=== PATIENT | male | born 1995 | race Two or more races ===

== ENCOUNTER 2018-06-21 08:08 | Emergency (ER) | payer MEDICAID ==
[~2018-06-21] VITALS: Ht 177.8 cm; Wt 59.0 kg
[2018-06-21 08:13] VITALS: BP 128/79
[2018-06-21] MEDS ORDERED: Tetanus/Diptheria/Pertussis Vaccine 0.5ml Syr IM ONE (08:15)
[2018-06-21] MEDS ORDERED: Neosporin Oint Ud Pkt TOP ONE (08:15)
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
[2018-06-21] MEDS: Acetaminophen 500mg (ES) tab PO ONE ×2 (08:36→08:40)
[2018-06-21 08:40] LABS: HEMATOCRIT 38.8 % (42.0-52.0); HEMOGLOBIN 13.3 G/DL (14.2-18.0); MEAN CORPUSCULAR VOLUME 87 FL (80-99); PLATELET COUNT 213 K/UL (150-450); RED BLOOD COUNT 4.45 M/UL (4.70-6.10); RED CELL DISTRIBUTION WIDTH 12.1 % (11.6-14.8); WHITE BLOOD COUNT 20.2 K/UL (4.8-10.8)
[2018-06-21 08:47] LABS: INR 1.1 (0.9-1.1)
--- NOTE | 2018-06-21 09:19 | Diagnostic Imaging Report ---
Indication: Headache. Head trauma Technique: Contiguous 5 mm thick transaxial imaging of the head obtained in a Siemens Sensation [address] scanner. Soft tissue and bone windows generated. Automatic Exposure Control was utilized. Total Dose length Product (DLP): 1414.[address] Dose Index Volume (CTDIvol): 70.38 mGy Comparison: none Findings: There is a hyperdense ovoid 0.8 x 1.8 cm hematoma in the right frontal lobe with a mild surrounding low attenuation edema consistent with a hemorrhagic contusion. Second hemorrhagic contusion noted within the right middle cranial fossa in the anterior tip of the temporal lobe measuring 1.2 cm. Mild sulcal high density within the right temporal lobe indicative of traumatic subarachnoid hemorrhage. There is no subdural hematoma identified. The calvarium appears intact. There is no midline shift. Ventricles appear normal. Basal cisterns appear normal. IMPRESSION: Right frontal lobe and right temporal lobe acute hemorrhagic contusions and evidence of traumatic subarachnoid hemorrhage within the right temporal lobe. Critical value communication. Findings were discussed via telephone with Dr. Dyer via telephone 9:13 a.m. 06/21/2018. The CT scanner at [facility] is accredited by the [employer] and the scans are performed using dose optimization techniques as appropriate to a performed exam including Automatic Exposure control.
[2018-06-21 09:22] VITALS: BP 122/74
[2018-06-21 09:26] LABS: ANION GAP 9 mmol/L (5-15); BLOOD UREA NITROGEN 21 mg/dL (7-18); CALCIUM 8.7 MG/DL (8.5-10.1); CARBON DIOXIDE 26 MMOL/L (21-32); CHLORIDE 101 MMOL/L (98-107); CREATININE 1.1 MG/DL (0.55-1.30); POTASSIUM 4.1 MMOL/L (3.5-5.1); SODIUM 136 MMOL/L (136-145)
[2018-06-21 09:30] LABS: ALANINE AMINOTRANSFERASE 62 U/L (12-78); ALBUMIN 3.9 G/DL (3.4-5.0); ALKALINE PHOSPHATASE 73 U/L (46-116); ASPARTATE AMINO TRANSFERASE 66 U/L (15-37); BILIRUBIN,TOTAL 0.5 MG/DL (0.2-1.0)
[2018-06-21] MEDS ORDERED: levETIRAcetam 500mg/NS100ml 100 ML IVPB ONE (09:30)
--- NOTE | 2018-06-21 09:30 | Diagnostic Imaging Report ---
Indication: Neck pain. Trauma Technique: Continuous helical imaging of the cervical spine was obtained transaxially from the skull base to the upper thoracic spine. 2-D coronal and sagittal reformatted images were obtained. Automatic Exposure Control was utilized. Total Dose length Product (DLP): 370.[address] Dose Index Volume (CTDIvol): 17.53 mGy Comparison: None Findings: In the left aspect of the skull base, adjacent to the temporal occipital suture, there is a small focus of soft tissue air along the scalp associated with a nondisplaced fracture. Adjacent to the left lambdoid suture. Atlantoaxial alignment appears normal. Height and configuration of the vertebral bodies and intervertebral discs are within normal limits. Uncovertebral joints and facets are unremarkable. There is no soft tissue swelling. Impression: Acute nondisplaced left skull base fracture adjacent to the lambdoid suture. Negative CT of the cervical spine. The CT scanner at [facility] is accredited by the [employer] and the scans are performed using dose optimization techniques as appropriate to a performed exam including Automatic Exposure control.
[2018-06-21] MEDS ORDERED: cefTRIAXone 1 GM in NS 55 ML IVPB ONE (09:45)
[2018-06-21 10:09] VITALS: BP 118/78
[2018-06-21 10:33] VITALS: BP 121/76
[2018-06-21 11:03] LABS: APPEARANCE,URINE CLEAR; BILIRUBIN, URINE NEGATIVE (NEGATIVE); COLOR,URINE PALE YELLOW; GLUCOSE, URINE (UA) NEGATIVE (NEGATIVE); KETONES,URINE 1+ (NEGATIVE); LEUKOCYTE ESTERASE ,URINE NEGATIVE (NEGATIVE); NITRITE,URINE NEGATIVE (NEGATIVE); PH,URINE 7 (4.5-8.0); PROTEIN,URINE 1+ (NEGATIVE); UROBILINOGEN,URINE NORMAL MG/DL (0.0-1.0)
--- NOTE | 2018-06-21 11:54 | Diagnostic Imaging Report ---
Indication: Dyspnea Comparison: None A single view chest radiograph was obtained. Findings: Mild patchy infiltrate versus atelectasis suspected at the left lung base. Left hemidiaphragm is slightly elevated. Heart size is normal. The bones are unremarkable. IMPRESSION: Pneumonia versus atelectasis suspected at the left lung base. Correlate clinically
== END 2018-06-21 10:40 | disposition short-term general hospital (02) ==
LOC: EDBD 08:08 → EMR 08:45
DX: S06.6X9A Traumatic subarachnoid hemorrhage with loss of consciousness of unspecified duration, initial encounter (principal); S02.0XXA Fracture of vault of skull, initial encounter for closed fracture; S01.01XA Laceration without foreign body of scalp, initial encounter; S91.201A Unspecified open wound of right great toe with damage to nail, initial encounter; R40.2412 Glasgow coma scale score 13-15, at arrival to emergency department; X58.XXXA Exposure to other specified factors, initial encounter; Y92.9 Unspecified place or not applicable; Z23 Encounter for immunization; D72.829 Elevated white blood cell count, unspecified; R91.8 Other nonspecific abnormal finding of lung field
CPT/HCPCS: 12002; 36415; 70450; 71045; 72125; 80053; 80307; 80329; 81001; 85007; 85025; 85610; 85730; 90471; 90715; 96361; 96365; 96368; 96375; 99291; J0696; J1953; J2405; Z7502